=== PATIENT | male | born 1955 | race Caucasian/White ===

== ENCOUNTER 2017-01-05 08:35 | Emergency (ER) | payer OTHER ==
[2017-01-05 08:14] LABS: BASOPHIL 0.4 % (0-2); EOSINOPHIL 3.6 % (0-5); HCT 45.1 % (42.0-52.0); HGB 15.8 g/dl (13.2-18.0); LYMPHOCYTE 18.6 % (15-48); MCH 33.2 pg (25.0-31.0); MCV 94.7 fL (78.0-100.0); MONOCYTE 9.6 % (0-12); MPV 10.4 fL (6.0-9.5); NEUTROPHIL 67.8 % (41-80); PLT 246 K/uL (150-400); RBC 4.76 M/uL (4.70-6.00); RDW 13.3 % (11.5-14.0); WBC 7.5 K/uL (4.0-10.5)
[2017-01-05 08:25] LABS: INR 0.97 (0.9-1.2); PROTHROMBIN TIME 12.5 SECONDS (11.7-14.0); PTT 25.9 SECONDS (23.2-31.4)
[2017-01-05 08:34] LABS: ALBUMIN 4.3 g/dL (3.4-4.8); BILIRUBIN - TOTAL 0.6 mg/dL (0.1-1.0); CKMB 2.56 ng/mL (0.97-4.94); CREATININE 0.9 mg/dL (0.7-1.2); GLOBULIN (CALCULATION) 2.9 g/dL (2.2-4.2); MAGNESIUM 2.14 mg/dL (1.40-2.10); MYOGLOBIN 34 ng/mL (26-65); POTASSIUM 4.2 mmol/L (3.5-5.1); PRO-BNP 232 pg/mL (0-125); TOTAL PROTEIN 7.2 g/dL (6.4-8.3); TROPONIN T < 0.010 ng/mL
== END 2017-01-05 11:14 | disposition other institution (70) ==
LOC: FER 08:35
PROVIDERS: Emergency Medicine
DX: R41.82 Altered mental status, unspecified (principal); R07.9 Chest pain, unspecified; R06.02 Shortness of breath; I25.2 Old myocardial infarction; Z79.82 Long term (current) use of aspirin; Z79.899 Other long term (current) drug therapy; Z95.5 Presence of coronary angioplasty implant and graft
CPT/HCPCS: 36415; 70450; 71010; 71275; 80053; 82550; 82553; 83735; 83874; 83880; 84484; 85025; 85610; 85730; 93005; J2270; Q9967